=== PATIENT | male | born 1965 | race Caucasian/White ===

== ENCOUNTER 2022-10-23 08:22 | Day surgery (SDC) | payer BC ==
[2022-10-23] MEDS ORDERED: Propofol 200 MG/20 ML SDV ONE ×2 (09:14→10:08)
[2022-10-23] MEDS ORDERED: Midazolam 1 MG/ML 2 ML SDV ONE (09:14)
[2022-10-23] MEDS ORDERED: fentaNYL 100 MCG/2 ML SDV ONE (09:14)
[2022-10-23] MEDS ORDERED: Lactated Ringers 1,000 ML IV SCH (09:15)
== END 2022-10-23 11:40 | disposition home or self-care (01) ==
LOC: JP.SDS 08:22
PROVIDERS: ATTEND Student in an Organized Health Care Education/Training Program
DX: Z12.11 Encounter for screening for malignant neoplasm of colon (principal); D12.7 Benign neoplasm of rectosigmoid junction; D12.5 Benign neoplasm of sigmoid colon; K21.9 Gastro-esophageal reflux disease without esophagitis; Z79.899 Other long term (current) drug therapy
CPT/HCPCS: 45380; 88305; J2250; J2704; J3010; J7120